=== PATIENT | female | born 1960 | race Caucasian/White ===

== ENCOUNTER 2020-05-07 15:32 | Emergency (ER) | payer BC ==
[2020-05-07 17:47] LABS: HEMOGLOBIN 12.7 gm/dl (12.3-15.3); RED BLOOD COUNT 4.52 M/UL (4.00-5.10); WHITE BLOOD COUNT 6.6 K/UL (4.5-11.0)
[2020-05-07 18:14] LABS: BUN/CREATININE RATIO 10 (0-10)
[2020-05-07] MEDS ORDERED: DOXYCYCLINE HY100 MG PO (21:50)
[2020-05-07] MEDS ORDERED: PROAIR HFA8.5 GM INH (21:57)
== END 2020-05-07 22:10 | disposition home or self-care (01) ==
LOC: ER1 15:32
PROVIDERS: Physician Assistant
DX: U07.1 COVID-19 (principal); J12.82 Pneumonia due to coronavirus disease 2019; E11.9 Type 2 diabetes mellitus without complications; Z88.1 Allergy status to other antibiotic agents
CPT/HCPCS: 71045; 80053; 81001; 82550; 82553; 83605; 83874; 84484; 85025; 85379; 87040; 87086; 93005; 99285; Q9967